=== PATIENT | female | born 1940 | race Caucasian/White ===

== ENCOUNTER 2022-01-22 09:31 | Day surgery (SDC) | payer MEDICARE, BC, OTHER ==
[2022-01-17 13:54] LABS: BASOPHILS % (AUTO) 0.5 % (0-1); EOSINOPHILS # (AUTO) 0.1 X10'3 (0-0.9); EOSINOPHILS % (AUTO) 1.2 % (0-6); HEMOGLOBIN 14.2 g/dl (12.0-16.0); LYMPHOCYTES # (AUTO) 1.4 X10'3 (1.1-4.8); LYMPHOCYTES % (AUTO) 23.9 % (21-51); MEAN CORPUSCULAR HEMOGLOBIN 31.9 PG (27.0-31.0); MEAN CORPUSCULAR HGB CONC 33.8 g/dL (33.0-36.5); MEAN CORPUSCULAR VOLUME 94.2 FL (78-98); MONOCYTES # (AUTO) 0.3 X10'3 (0-0.9); MONOCYTES % (AUTO) 5.5 % (2-12); NEUTROPHILS # (AUTO) 4.1 X10'3 (1.8-7.7); NEUTROPHILS % (AUTO) 68.9 % (42-75); PLATELET COUNT 185 X10'3 (140-440); RED BLOOD COUNT 4.46 X10'6 (4.20-5.60); RED CELL DISTRIBUTION WIDTH 13.4 % (11.5-14.5)
[2022-01-17 13:56] LABS: APTT 26 SECONDS (22-32)
[2022-01-17 13:58] LABS: ALANINE AMINOTRANSFERASE 22 U/L (12-78); ALBUMIN 3.8 G/DL (3.4-5.0); ALBUMIN/GLOBULIN RATIO 1.2 (1.1-1.5); ALKALINE PHOSPHATASE 92 IU/L (46-116); ANION GAP 6 (8-16); ASPARTATE AMINO TRANSFERASE 22 U/L (10-37); BILIRUBIN,TOTAL 0.6 MG/DL (0.1-1.0); BLOOD UREA NITROGEN 30 MG/DL (7-18); BUN/CREATININE RATIO 21.4 (6.6-38.0); CHLORIDE 104 MMOL/L (99-107); GLUCOSE 242 MG/DL (70-104); POTASSIUM 4.2 MMOL/L (3.5-5.1); SODIUM 140 MMOL/L (135-145); TOTAL CARBON DIOXIDE 30.2 MMOL/L (24-32); TOTAL PROTEIN 7.1 G/DL (6.4-8.2); eGFR 36 ML/MIN
[2022-01-22] VITALS (10 sets, daily range): BP systolic 115–147; BP diastolic 52–92
[~2022-01-22] VITALS: Ht 162.6 cm; Wt 83.0 kg
[2022-01-22] MEDS ORDERED: nitroGLYCERIN 0.4mg SUBLingual tab SL PRN (09:45)
[2022-01-22] MEDS ORDERED: diphenhydrAMINE 25mg capsule PO PRN (09:50)
[2022-01-22] MEDS ORDERED: normal saline 1,000 ML IV SCH (09:50)
[2022-01-22] MEDS ORDERED: LORazepam 0.5 MG tablet PO PRN (09:50)
[2022-01-22] MEDS ORDERED: ATOR80TA PO (10:02)
[2022-01-22] MEDS ORDERED: METF-436 PO (10:02)
[2022-01-22] MEDS ORDERED: HYDR25TA5 PO (10:02)
[2022-01-22] MEDS ORDERED: OLME40TA70 PO (10:02)
[2022-01-22] MEDS ORDERED: ASPI81TA52 PO (10:02)
[2022-01-22] MEDS ORDERED: LEVO88TA39 PO (10:02)
[2022-01-22] MEDS ORDERED: MAGN500C4 PO (10:02)
[2022-01-22] MEDS ORDERED: DULA3PEN SQ (10:02)
[2022-01-22 11:07] LABS: HEMOGLOBIN A1C 7.7 % (4.5-6.2)
[2022-01-22] MEDS ORDERED: midazolam 1 mg/ML 2ml injection ONE (11:45)
[2022-01-22] MEDS ORDERED: iohexol 350MG/ML 100ml bottle IV ONE (11:45)
[2022-01-22] MEDS ORDERED: fentaNYL/PF 50MCG/1 ML 2ML syringe ONE (11:45)
[2022-01-22] MEDS ORDERED: LIDOcaine 1% 30ml preserv. free vial ONE (11:45)
[2022-01-22] MEDS ORDERED: HYDROcodone/acetaminophen 5mg/325mg tablet PO PRN (13:15)
[2022-01-22] MEDS ORDERED: OXAZEpam 15mg capsule PO PRN (13:15)
[2022-01-22] MEDS ORDERED: normal saline 1000ml 1,000 ML IV SCH (13:15)
[2022-01-22] MEDS ORDERED: HYDROcodone/acetaminophen 10/325mg tab PO PRN (13:15)
[2022-01-22] MEDS ORDERED: ondansetron/PF 4mg/2ml inj IV PRN (13:15)
[2022-01-22] MEDS ORDERED: proCHLORperazine 10 MG/2 ml inj IV PRN (13:15)
== END 2022-01-22 18:00 | disposition home or self-care (01) ==
LOC: SSTAY O 09:31
PROVIDERS: ATTEND Internal Medicine Cardiovascular Disease
DX: R94.39 Abnormal result of other cardiovascular function study (principal); I25.10 Atherosclerotic heart disease of native coronary artery without angina pectoris; G47.33 Obstructive sleep apnea (adult) (pediatric); E11.42 Type 2 diabetes mellitus with diabetic polyneuropathy; I10 Essential (primary) hypertension; E78.5 Hyperlipidemia, unspecified; Z79.899 Other long term (current) drug therapy; Z98.890 Other specified postprocedural states; Z79.01 Long term (current) use of anticoagulants
CPT/HCPCS: 36415; 71046; 80053; 82948; 83036; 83880; 85025; 85610; 85730; 93005; 93458; 99152; C1760; C1769; J1644; J2250; J3010; J3490; J7030; Q0163; Q9967; 99153; A4620; A6258